=== PATIENT | female | born 1975 | race African-American/Black ===

== ENCOUNTER 2018-03-20 11:26 | Inpatient (IN) | payer MEDICAID ==
[~2018-03-20] VITALS: Ht 162.6 cm; Wt 95.3 kg
[2018-03-20 16:03] LABS: BASOPHILS % 0.2 % (0.0-2.0); EOSINOPHILS % 2.7 % (0.0-5.0); HEMATOCRIT. 31.9 % (36.0-48.0); LYMPHOCYTES % 27.2 % (20.0-50.0); MEAN CORPUSCULAR VOLUME 73.7 fL (81.0-99.0); MEAN PLATELET VOLUME 9.8 fl (7.4-10.4); NEUTROPHILS % 63.9 % (40.0-76.0); PLATELET 215 x1000/uL (130-400); RED BLOOD CELL COUNT 4.33 mill/uL (4.2-5.4); RED CELL DISTRIBUTION WIDTH 15.2 % (11.6-14.6)
[2018-03-20 16:08] LABS: CHLORIDE 110 mEq/L (98-107)
[2018-03-20 16:11] LABS: PROTHROMBIN TIME 9.9 sec (9.1-11.1)
[2018-03-20 16:21] LABS: HCG SCREEN NEGATIVE
[2018-03-20 17:46] LABS: CLARITY URINE CLOUDY (CLEAR); COLOR URINE YELLOW (YELLOW); KETONES URINE NEGATIVE (NEGATIVE); LEUKOCYTE ESTERASE URINE NEGATIVE (NEGATIVE); NITRITE URINE NEGATIVE (NEGATIVE); OCCULT BLOOD URINE 1+ (NEGATIVE); PH URINE 5.5 (4.5-8.0); PROTEIN URINE 3+ (NEGATIVE); SPECIFIC GRAVITY URINE 1.018 (1.005-1.030); UROBILINOGEN URINE 0.2 E.U./dL (0.2-1.0)
[2018-03-20] MEDS ORDERED: IPRATROPIUM/ALBUTEROL 0.5-3(2.5)MG/3ML NEB INH PRN (18:00)
[2018-03-20] MEDS ORDERED: ONDANSETRON HCL 4MG/2ML INJ IV PRN (18:00)
[2018-03-20] MEDS ORDERED: DOCUSATE SODIUM 100MG CAPSULE PO PRN (18:00)
[2018-03-20] MEDS ORDERED: ACETAMINOPHEN 325MG TABLET PO PRN (18:00)
[2018-03-20] MEDS ORDERED: HYDROCODONE/ACETAMINOPHEN 5/325MG TABLET PO PRN (18:00)
[2018-03-20] MEDS ORDERED: CLONIDINE 0.1MG TABLET PO PRN (18:00)
[2018-03-20] MEDS ORDERED: NIFEDIPINE XL 60MG TAB PO SCH ×2 (18:15→21:00)
[2018-03-20] MEDS: INSULIN LISPRO 100 UNITS/ML SUBCUT SCH (21:07)
[2018-03-20] MEDS: INSULIN GLARGINE UD 100 UNITS/ML SYR SUBCUT SCH (21:07)
[2018-03-20] MEDS: BLOOD SUGAR DIAGNOSTIC STRIP TEST SCH (21:16)
[2018-03-20 21:44] LABS: CHLORIDE 111 mEq/L (98-107)
[2018-03-20 21:53] LABS: CREATINE KINASE 263 IU/L (26-192); CREATINE KINASE MB FRACTION 6.7 ng/mL (0.5-3.6); PHOSPHORUS 3.1 mg/dL (2.5-4.9)
[2018-03-21] VITALS (9 sets, daily range): BP systolic 103–150; BP diastolic 43–78
[2018-03-21 00:15] LABS: *AMPHETAMINES SCREEN URINE NEGATIVE (NEGATIVE); *BARBITURATES SCREEN URINE NEGATIVE (NEGATIVE); *BENZODIAZEPINES SCREEN URINE NEGATIVE (NEGATIVE); *COCAINE SCREEN URINE NEGATIVE (NEGATIVE); CANNABINOID URINE SCREEN NEGATIVE (NEGATIVE); METHADONE URINE SCREEN NEGATIVE (NEGATIVE); OPIATES URINE SCREEN NEGATIVE (NEGATIVE); PHENCYCLIDINE URINE SCREEN NEGATIVE (NEGATIVE)
[2018-03-21] MEDS ORDERED: GLIP10TA10 PO (01:12)
[2018-03-21] MEDS ORDERED: ATEN50TA PO (01:12)
[2018-03-21] MEDS ORDERED: PRAV10TA35 PO (01:12)
[2018-03-21] MEDS ORDERED: ASPI-1159 PO (01:12)
[2018-03-21] MEDS ORDERED: INSU100I24 SQ (01:12)
[2018-03-21] MEDS ORDERED: DEXTROSE 50% WATER 50ML SYRINGE IV PRN (02:54)
[2018-03-21] MEDS ORDERED: SODIUM CHLORIDE 0.9% 500 ML IV ONE (02:55)
[2018-03-21] MEDS: BLOOD SUGAR DIAGNOSTIC STRIP TEST SCH ×4 (06:39→20:12)
[2018-03-21] MEDS: SODIUM BICARBONATE 650 MG TABLET PO SCH ×3 (09:00→16:55)
[2018-03-21] MEDS: HEPARIN 5000 UNITS/ML VIAL SUBCUT SCH ×2 (10:34→20:42)
[2018-03-21] MEDS: NIFEDIPINE XL 60MG TAB PO SCH (10:34)
[2018-03-21] MEDS: INSULIN LISPRO 100 UNITS/ML SUBCUT SCH ×4 (10:40→20:13)
[2018-03-21] MEDS: INSULIN GLARGINE UD 100 UNITS/ML SYR SUBCUT SCH (12:16)
[2018-03-21] MEDS: SODIUM CHLORIDE 0.9% 1,000 ML IV SCH ×2 (12:18→20:45)
[2018-03-21 12:50] LABS: BASOPHILS % 0.2 % (0.0-2.0); EOSINOPHILS % 2.1 % (0.0-5.0); HEMOGLOBIN. 9.4 g/dL (12.0-16.0); LYMPHOCYTES % 24.3 % (20.0-50.0); MEAN CORPUSCULAR HEMOGLOBIN 23.2 pg (28.0-32.0); MEAN CORPUSCULAR VOLUME 73.6 fL (81.0-99.0); MEAN PLATELET VOLUME 10.2 fl (7.4-10.4); MONOCYTES % 4.5 % (2.0-8.0); NEUTROPHILS % 68.9 % (40.0-76.0); PLATELET 199 x1000/uL (130-400); RED BLOOD CELL COUNT 4.07 mill/uL (4.2-5.4); RED CELL DISTRIBUTION WIDTH 15.3 % (11.6-14.6)
[2018-03-21 13:12] LABS: CREATINE KINASE 238 IU/L (26-192); CREATINE KINASE MB FRACTION 5.1 ng/mL (0.5-3.6); HDL CHOLESTEROL 26 mg/dL (40-59); LDL CHOLESTEROL 123 mg/dL (5-100); PHOSPHORUS 3.4 mg/dL (2.5-4.9)
[2018-03-21] MEDS: CEFTRIAXONE 1 G PREMIX 50 ML IV SCH (13:33)
[2018-03-21 17:29] LABS: CHLORIDE 113 mEq/L (98-107)
[2018-03-21] MEDS ORDERED: SODIUM BICARBONATE 650 MG TABLET PO SCH (18:15)
[2018-03-22] VITALS: BP 133/57
[2018-03-22] MEDS: INSULIN GLARGINE UD 100 UNITS/ML SYR SUBCUT SCH ×2 (02:19→11:17)
[2018-03-22 04:00] VITALS: BP 108/49
[2018-03-22] MEDS: BLOOD SUGAR DIAGNOSTIC STRIP TEST SCH ×3 (06:25→17:53)
[2018-03-22 07:57] VITALS: BP 137/65
[2018-03-22] MEDS: SODIUM BICARBONATE 650 MG TABLET PO SCH ×3 (08:47→17:58)
[2018-03-22] MEDS: NIFEDIPINE XL 60MG TAB PO SCH (08:47)
[2018-03-22] MEDS: HEPARIN 5000 UNITS/ML VIAL SUBCUT SCH (08:48)
[2018-03-22] MEDS: INSULIN LISPRO 100 UNITS/ML SUBCUT SCH ×3 (09:00→17:57)
[2018-03-22] MEDS ORDERED: BISACODYL 5MG TABLET PO PRN (10:30)
[2018-03-22 12:00] VITALS: BP 153/86
[2018-03-22] MEDS: CEFTRIAXONE 1 G PREMIX 50 ML IV SCH (13:21)
[2018-03-22] MEDS ORDERED: POLYETHYLENE GLYCOL 3350 (17GM) 1 DOSE PACK PO SCH (14:00)
[2018-03-22] MEDS ORDERED: ASPIRIN 81MG TABLET PO SCH (14:00)
[2018-03-22] MEDS ORDERED: PANTOPRAZOLE 40MG DR TABLET PO SCH (14:00)
[2018-03-22 15:18] VITALS: BP 131/85
[2018-03-22 17:11] LABS: TOTAL IRON BINDING CAPACITY 201 ug/dL (250-450)
[2018-03-22 17:22] VITALS: BP 131/85
[2018-03-22] MEDS ORDERED: POLY17PO3 PO (17:22)
[2018-03-22] MEDS ORDERED: LIP40 PO (17:22)
[2018-03-22] MEDS ORDERED: NIFE60TA64 PO (17:22)
[2018-03-22 17:41] LABS: FOLIC ACID (FOLATE) SERUM 5.8 ng/mL (>5.38)
[2018-03-22] MEDS ORDERED: ATORVASTATIN CALCIUM 20MG TABLET PO SCH (21:00)
[2018-03-22] MEDS ORDERED: ATORVASTATIN CALCIUM 40MG TABLET PO SCH (21:00)
== END 2018-03-22 18:30 | disposition home or self-care (01) | DRG 254 ==
LOC: ER 12:31 → EDBEDREQ 15:30 → 6WST 17:00 → EDBEDREQ 17:19 → EDBEDREQTM 17:19 → ENRESERV 22:33 → SUPCPDRO 22:59 → ENRESERV 23:27
PROVIDERS: ADMIT Internal Medicine; ATTEND Internal Medicine
DX: K58.1 Irritable bowel syndrome with constipation (principal); N17.9 Acute kidney failure, unspecified; E11.22 Type 2 diabetes mellitus with diabetic chronic kidney disease; E11.65 Type 2 diabetes mellitus with hyperglycemia; N39.0 Urinary tract infection, site not specified; E87.5 Hyperkalemia; K57.90 Diverticulosis of intestine, part unspecified, without perforation or abscess without bleeding; K59.09 Other constipation; E78.5 Hyperlipidemia, unspecified; N18.5 Chronic kidney disease, stage 5; I12.9 Hypertensive chronic kidney disease with stage 1 through stage 4 chronic kidney disease, or unspecified chronic kidney disease; D50.9 Iron deficiency anemia, unspecified; D28.7 Benign neoplasm of other specified female genital organs; Z79.4 Long term (current) use of insulin; Z87.891 Personal history of nicotine dependence; Z91.14 Patient's other noncompliance with medication regimen; Z91.19 Patient's noncompliance with other medical treatment and regimen; Z98.891 History of uterine scar from previous surgery
CPT/HCPCS: 36415; 71045; 74176; 76770; 80048; 80061; 80305; 82550; 82553; 82607; 82728; 82746; 82962; 83540; 83550; 83605; 83880; 84100; 84443; 84484; 84703; 93005; 93970; 99285; J0696; J1644; J1815; J7030; J7040

== ENCOUNTER 2018-11-10 18:33 | Inpatient (IN) | payer MEDICAID ==
[~2018-11-10] VITALS: Ht 162.6 cm; Wt 93.0 kg
[~2018-11-10 18:33] MED LIST: ASPI-1393 PO; GLIP10TA10 PO; INSU100I24 SQ; LIP40 PO; NIFE60TA64 PO; POLY17PO3 PO
[2018-11-10 20:22] LABS: BASOPHILS % 0.4 % (0.0-2.0); EOSINOPHILS % 2.2 % (0.0-5.0); HEMATOCRIT. 27.1 % (36.0-48.0); HEMOGLOBIN. 8.4 g/dL (12.0-16.0); LYMPHOCYTES % 25.1 % (20.0-50.0); MEAN CORPUSCULAR HEMOGLOBIN 22.4 pg (28.0-32.0); MEAN CORPUSCULAR VOLUME 72.3 fL (81.0-99.0); MEAN PLATELET VOLUME 9.8 fl (7.4-10.4); MONOCYTES % 5.8 % (2.0-8.0); NEUTROPHILS % 66.5 % (40.0-76.0); PLATELET 202 x1000/uL (130-400); RED BLOOD CELL COUNT 3.75 mill/uL (4.2-5.4); RED CELL DISTRIBUTION WIDTH 16.5 % (11.6-14.6)
[2018-11-10 20:30] LABS: INR 0.9; PARTIAL THROMBOPLASTIN TIME 28.1 sec (23.4-31.0); PROTHROMBIN TIME 9.5 sec (9.6-11.0)
[2018-11-10 20:35] LABS: CHLORIDE 113 mEq/L (98-107)
[2018-11-10] MEDS ORDERED: DIPHENHYDRAMINE 50MG/ML VIAL IV PRN (22:30)
[2018-11-10] MEDS ORDERED: CLONIDINE 0.1MG TABLET PO PRN (22:30)
[2018-11-10] MEDS ORDERED: HYDRALAZINE 20MG/ML VIAL IV PRN (22:30)
[2018-11-10] MEDS ORDERED: DOCUSATE SODIUM 100MG CAPSULE PO PRN (22:30)
[2018-11-10] MEDS ORDERED: HYDROMORPHONE HCL/PF 2MG/ML CPJ IV PRN (22:30)
[2018-11-10] MEDS ORDERED: LORAZEPAM 2MG/ML CPJ IV PRN (22:30)
[2018-11-10] MEDS ORDERED: MAGNESIUM/ALUMINUM HYDROXIDE/SIMETHICONE 30ML UDC PO PRN (22:30)
[2018-11-10] MEDS ORDERED: NA PHOS,M-B/NA PHOS,DI-BA ENEMA 118ML PR PRN (22:30)
[2018-11-10] MEDS ORDERED: GUAIFENESIN 200MG/10ML SUGAR FREE UDC PO PRN (22:30)
[2018-11-10] MEDS ORDERED: IPRATROPIUM/ALBUTEROL 0.5-3(2.5)MG/3ML NEB INH PRN (22:30)
[2018-11-10] MEDS ORDERED: DEXTROSE 50% WATER 50ML SYRINGE IV PRN (22:30)
[2018-11-10] MEDS ORDERED: ACETAMINOPHEN 325MG TABLET PO PRN (22:30)
[2018-11-10 22:54] LABS: PHOSPHORUS 5.2 mg/dL (2.5-4.9)
[2018-11-10 23:00] VITALS: BP 160/72
[2018-11-10] MEDS ORDERED: HYDROCODONE/ACETAMINOPHEN 10/325MG TABLET PO PRN (23:38)
[2018-11-10] MEDS ORDERED: HYDR-2510 PO (23:39)
[2018-11-10] MEDS ORDERED: ATEN50TA PO (23:39)
[2018-11-10] MEDS ORDERED: FURO40TA5 PO (23:40)
[2018-11-11] VITALS (14 sets, daily range): BP systolic 152–175; BP diastolic 58–82
[2018-11-11] MEDS: BLOOD SUGAR DIAGNOSTIC STRIP TEST SCH ×4 (05:59→21:00)
[2018-11-11] MEDS: SODIUM CHLORIDE 0.9% INJ 3ML FLUSH IVF SCH ×2 (06:00→22:00)
[2018-11-11 07:22] LABS: BASOPHILS % 0.3 % (0.0-2.0); EOSINOPHILS % 2.2 % (0.0-5.0); HEMATOCRIT. 26.3 % (36.0-48.0); HEMOGLOBIN. 8.2 g/dL (12.0-16.0); LYMPHOCYTES % 22.7 % (20.0-50.0); MEAN CORPUSCULAR HEMOGLOBIN 22.6 pg (28.0-32.0); MEAN CORPUSCULAR VOLUME 72.7 fL (81.0-99.0); MEAN PLATELET VOLUME 10.5 fl (7.4-10.4); MONOCYTES % 5.1 % (2.0-8.0); NEUTROPHILS % 69.7 % (40.0-76.0); PLATELET 171 x1000/uL (130-400); RED BLOOD CELL COUNT 3.62 mill/uL (4.2-5.4)
[2018-11-11] MEDS: INSULIN LISPRO 100 UNITS/ML SUBCUT SCH ×4 (09:02→21:40)
[2018-11-11 09:53] LABS: CHLORIDE 112 mEq/L (98-107)
[2018-11-11] MEDS: ENOXAPARIN 40MG/0.4ML SYR SUBCUT SCH (10:00)
[2018-11-11 10:11] LABS: CREATINE KINASE 516 IU/L (26-192)
[2018-11-11 10:13] LABS: CREATINE KINASE MB FRACTION 12.9 ng/mL (0.5-3.6)
[2018-11-11] MEDS ORDERED: CEFAZOLIN 1000MG PREMIX 50 ML IV NR (12:30)
[2018-11-11] MEDS ORDERED: SODIUM BICARBONATE 4% (2.4MEQ) 5ML VIAL IV ONE (13:32)
[2018-11-11] MEDS ORDERED: LIDOCAINE HCL 1% 20ML VIAL (Pyxis) INJ ONE (13:32)
[2018-11-11] MEDS ORDERED: FENTANYL CITRATE/PF 50MCG/ML 2ML VIAL ONE (13:34)
[2018-11-11] MEDS ORDERED: CEFAZOLIN 1000MG PREMIX 50 ML IV ONE (13:34)
[2018-11-11] MEDS ORDERED: FENTANYL CITRATE/PF 50MCG/ML 2ML VIAL IV ONE (14:15)
[2018-11-11 14:57] LABS: HEPATITIS B SURFACE ANTIGEN NEGATIVE
[2018-11-11 15:23] LABS: HEPATITIS A AB IGM NEGATIVE (NEGATIVE)
[2018-11-11 18:28] LABS: CREATINE KINASE MB FRACTION 12.6 ng/mL (0.5-3.6)
[2018-11-11] MEDS: ONDANSETRON HCL 4MG/2ML INJ IV PRN (21:40)
[2018-11-12] VITALS: BP 121/54
[2018-11-12 04:00] VITALS: BP 146/66
[2018-11-12] MEDS: SODIUM CHLORIDE 0.9% INJ 3ML FLUSH IVF SCH ×3 (06:12→21:02)
[2018-11-12] MEDS: ONDANSETRON HCL 4MG/2ML INJ IV PRN (06:19)
[2018-11-12] MEDS: BLOOD SUGAR DIAGNOSTIC STRIP TEST SCH ×4 (07:40→21:00)
[2018-11-12 08:00] VITALS: BP 152/75
[2018-11-12] MEDS: INSULIN LISPRO 100 UNITS/ML SUBCUT SCH ×4 (08:10→21:00)
[2018-11-12] MEDS: ENOXAPARIN 40MG/0.4ML SYR SUBCUT SCH (11:16)
[2018-11-12 12:00] VITALS: BP_SYST 112; BP_SYST 129; BP_SYST 152; BP_DIAS 57; BP_DIAS 75
[2018-11-12 16:00] VITALS: BP 138/57
[2018-11-12 20:00] VITALS: BP 142/62
[2018-11-13] VITALS (7 sets, daily range): BP systolic 129–153; BP diastolic 55–75
[2018-11-13] MEDS: SODIUM CHLORIDE 0.9% INJ 3ML FLUSH IVF SCH (05:36)
[2018-11-13 07:27] LABS: BASOPHILS % 0.3 % (0.0-2.0); EOSINOPHILS % 1.3 % (0.0-5.0); HEMATOCRIT. 28.6 % (36.0-48.0); HEMOGLOBIN. 8.9 g/dL (12.0-16.0); MEAN CORPUSCULAR HEMOGLOBIN 22.7 pg (28.0-32.0); MEAN CORPUSCULAR VOLUME 72.8 fL (81.0-99.0); MEAN PLATELET VOLUME 10.6 fl (7.4-10.4); MONOCYTES % 5.9 % (2.0-8.0); NEUTROPHILS % 69.5 % (40.0-76.0); PLATELET 163 x1000/uL (130-400); RED BLOOD CELL COUNT 3.93 mill/uL (4.2-5.4)
[2018-11-13] MEDS: BLOOD SUGAR DIAGNOSTIC STRIP TEST SCH ×3 (07:40→17:40)
[2018-11-13] MEDS: ONDANSETRON HCL 4MG/2ML INJ IV PRN (08:29)
[2018-11-13] MEDS: ENOXAPARIN 40MG/0.4ML SYR SUBCUT SCH (08:42)
[2018-11-13] MEDS: INSULIN LISPRO 100 UNITS/ML SUBCUT SCH ×3 (08:47→17:57)
== END 2018-11-13 20:30 | disposition home or self-care (01) | DRG 470 ==
LOC: ER 18:36 → EDBEDREQ 21:06 → EDBEDREQTM 21:06 → 7WST 21:58 → EDBEDREQ 22:00 → EDBEDREQTM 22:00 → ENRESERV 22:17
PROVIDERS: ADMIT Internal Medicine; ATTEND Internal Medicine
PROC: 0JH63XZ Insertion of Tunneled Vascular Access Device into Chest Subcutaneous Tissue and Fascia, Percutaneous Approach (ICD-10-PCS; principal; 2018-11-11)
PROC: 02HV33Z Insertion of Infusion Device into Superior Vena Cava, Percutaneous Approach (ICD-10-PCS; 2018-11-11)
PROC: B5181ZA Fluoroscopy of Superior Vena Cava using Low Osmolar Contrast, Guidance (ICD-10-PCS; 2018-11-11)
PROC: B548ZZA Ultrasonography of Superior Vena Cava, Guidance (ICD-10-PCS; 2018-11-11)
DX: I12.0 Hypertensive chronic kidney disease with stage 5 chronic kidney disease or end stage renal disease (principal); E11.22 Type 2 diabetes mellitus with diabetic chronic kidney disease; N18.6 End stage renal disease; R65.10 Systemic inflammatory response syndrome (SIRS) of non-infectious origin without acute organ dysfunction; E44.0 Moderate protein-calorie malnutrition; D63.8 Anemia in other chronic diseases classified elsewhere; F17.200 Nicotine dependence, unspecified, uncomplicated; Z91.19 Patient's noncompliance with other medical treatment and regimen; Z88.8 Allergy status to other drugs, medicaments and biological substances; Z79.82 Long term (current) use of aspirin; Z79.4 Long term (current) use of insulin; Z79.899 Other long term (current) drug therapy; Z98.891 History of uterine scar from previous surgery; Z79.84 Long term (current) use of oral hypoglycemic drugs; Z99.2 Dependence on renal dialysis
CPT/HCPCS: 36415; 36558; 71045; 76937; 77001; 80048; 82550; 82553; 82962; 83970; 84100; 84484; 86705; 86709; 86803; 86850; 86900; 87340; 93005; 93970; 99285; C1750; C1769; J0690; J1642; J1650; J1815; J2405; J3010; J3490; J7050

== ENCOUNTER 2024-06-04 10:07 | Emergency (ER) | payer MEDICARE, MEDICAID ==
[~2024-06-04] VITALS: Ht 162.6 cm; Wt 75.0 kg
[~2024-06-04 10:07] MED LIST changes: -ASPI-1393 PO; +ASPI-1497 PO; +ATEN50TA PO; +FURO40TA5 PO; -GLIP10TA10 PO; +GLIP10TA17 PO; +HYDR50TA PO; -NIFE60TA64 PO
[2024-06-04 10:20] VITALS: BP 148/79; PULSE 69; RESP 16; TEMP 37.1; O2SAT 96; O2SAT 99
== END 2024-06-04 11:05 | disposition left against medical advice (07) ==
LOC: ER 10:18
DX: B34.9 Viral infection, unspecified (principal); E11.9 Type 2 diabetes mellitus without complications; I10 Essential (primary) hypertension; F12.90 Cannabis use, unspecified, uncomplicated; Z79.899 Other long term (current) drug therapy; Z88.8 Allergy status to other drugs, medicaments and biological substances; Z99.2 Dependence on renal dialysis
CPT/HCPCS: 71045; 99283